=== PATIENT | male | born 1985 | race Caucasian/White ===

== ENCOUNTER 2017-11-18 09:00 | Emergency (ER) | payer MEDICAID ==
[~2017-11-18] VITALS: Ht 177.8 cm; Wt 97.0 kg
[2017-11-18] MEDS ORDERED: ondansetron/PF 4mg/2ml inj IV ONE (10:20)
[2017-11-18] MEDS ORDERED: normal saline 1000ml 1,000 ML IV ONE (10:20)
[2017-11-18] MEDS ORDERED: acetaminophen 325mg tablet PO ONE (10:30)
[2017-11-18 10:35] LABS: BASOPHILS % (AUTO) 0.3 % (0-1); EOSINOPHILS # (AUTO) 0.2 X10'3 (0-0.9); EOSINOPHILS % (AUTO) 1.4 % (0-6); HEMATOCRIT 45.9 % (42.0-52.0); HEMOGLOBIN 15.7 g/dl (14.0-17.9); LYMPHOCYTES # (AUTO) 2.3 X10'3 (1.1-4.8); LYMPHOCYTES % (AUTO) 19.1 % (21-51); MEAN CORPUSCULAR HEMOGLOBIN 31.2 PG (27.0-31.0); MEAN CORPUSCULAR HGB CONC 34.2 % (33.0-36.5); MEAN PLATELET VOLUME 7.9 FL (7.4-10.4); MONOCYTES # (AUTO) 0.8 X10'3 (0-0.9); MONOCYTES % (AUTO) 6.7 % (2-12); NEUTROPHILS # (AUTO) 8.5 X10'3 (1.8-7.7); NEUTROPHILS % (AUTO) 72.5 % (42-75); PLATELET COUNT 224 X10'3 (140-440); RED BLOOD COUNT 5.04 X10'6 (4.70-6.10); RED CELL DISTRIBUTION WIDTH 12.7 % (11.5-14.5); WHITE BLOOD COUNT 11.8 X10'3 (4.5-11.0)
[2017-11-18 10:54] LABS: ALANINE AMINOTRANSFERASE 36 U/L (12-78); ALBUMIN 4.1 G/DL (3.4-5.0); ALKALINE PHOSPHATASE 80 IU/L (46-116); ANION GAP 9 (8-16); ASPARTATE AMINO TRANSFERASE 23 U/L (10-37); BILIRUBIN,TOTAL 0.4 MG/DL (0.1-1.0); BLOOD UREA NITROGEN 9 MG/DL (7-18); BUN/CREATININE RATIO 10.1 (5.4-32.0); CALCIUM 9.4 MG/DL (8.5-10.1); CHLORIDE 103 MMOL/L (99-107); CREATININE 0.89 MG/DL (0.60-1.10); GLUCOSE 102 MG/DL (70-104); POTASSIUM 4.2 MMOL/L (3.5-5.1); SODIUM 140 MMOL/L (135-145); TOTAL CARBON DIOXIDE 27.8 MMOL/L (24-32); TOTAL PROTEIN 8.1 G/DL (6.4-8.2); eGFR > 90 ML/MIN
[2017-11-18 11:13] VITALS: BP 148/93
[2017-11-18] MEDS ORDERED: POLY119P2 PO (11:17)
[2017-11-18] MEDS ORDERED: BISA-155 PO (11:17)
== END 2017-11-18 11:38 | disposition home or self-care (01) ==
LOC: ER 09:00
DX: K64.9 Unspecified hemorrhoids (principal); R10.84 Generalized abdominal pain; Z79.899 Other long term (current) drug therapy
CPT/HCPCS: 36415; 80053; 85025; 93005; 96374; 99285; J2405; J7030

== ENCOUNTER 2018-03-08 07:35 | Emergency (ER) | payer BC, MEDICAID ==
[~2018-03-08] VITALS: Ht 177.8 cm; Wt 95.8 kg
[~2018-03-08 07:35] MED LIST: BISA-155 PO; POLY119P2 PO
[2018-03-08 07:40] VITALS: BP 187/104
[2018-03-08] MEDS ORDERED: triamcinolone acetonide 0.1% ointment 15gm TP STA (08:27)
== END 2018-03-08 08:56 | disposition home or self-care (01) ==
LOC: ER 07:36
DX: K13.0 Diseases of lips (principal); N48.89 Other specified disorders of penis; Z79.899 Other long term (current) drug therapy
CPT/HCPCS: 99282; 99283

== ENCOUNTER 2018-03-09 08:20 | Emergency (ER) | payer BC, MEDICAID ==
[~2018-03-09] VITALS: Ht 177.8 cm; Wt 102.3 kg
[2018-03-09 08:46] VITALS: BP 156/70
[2018-03-09 09:40] LABS: CLARITY,URINE CLEAR (Clear); COLOR,URINE YELLOW (Yellow); GLUCOSE, URINE NEGATIVE (Neg); KETONES,URINE NEGATIVE (Neg); LEUKOCYTE ESTERASE ,URINE NEGATIVE (Neg); NITRITES, URINE NEGATIVE (Neg); OCCULT BLOOD,URINE NEGATIVE (Neg); PROTEIN,URINE NEGATIVE (Neg); UROBILINOGEN,URINE 0.2 E.U/dL (0.2-1.0)
[2018-03-09 09:46] LABS: UA COLLECTION TYPE NON-SPECIFIED
== END 2018-03-09 10:02 | disposition home or self-care (01) ==
LOC: ER 08:20
DX: F41.9 Anxiety disorder, unspecified (principal); B00.1 Herpesviral vesicular dermatitis; Z79.899 Other long term (current) drug therapy
CPT/HCPCS: 81003; 99283

== ENCOUNTER 2019-09-30 07:57 | Emergency (ER) | payer BC, MEDICAID ==
[~2019-09-30] VITALS: Ht 177.8 cm; Wt 90.0 kg
--- NOTE | 2019-09-30 09:25 | NUR ---
ekg done as pt was c/o chest tightness ,nausea, lft sided neck pain .dr lincoln notified.
[2019-09-30] MEDS ORDERED: normal saline 1000ML IV soln IVB ONE (09:55)
[2019-09-30 10:35] LABS: BASOPHILS % (AUTO) 0.3 % (0-1); EOSINOPHILS % (AUTO) 0.4 % (0-6); HEMATOCRIT 51.1 % (42.0-52.0); HEMOGLOBIN 17.5 g/dl (14.0-17.9); LYMPHOCYTES # (AUTO) 1.4 X10'3 (1.1-4.8); LYMPHOCYTES % (AUTO) 20.5 % (21-51); MEAN CORPUSCULAR HEMOGLOBIN 32.1 PG (27.0-31.0); MEAN CORPUSCULAR HGB CONC 34.2 g/dL (33.0-36.5); MEAN CORPUSCULAR VOLUME 93.7 FL (78-98); MEAN PLATELET VOLUME 8.4 FL (7.4-10.4); MONOCYTES # (AUTO) 0.4 X10'3 (0-0.9); NEUTROPHILS # (AUTO) 5.1 X10'3 (1.8-7.7); NEUTROPHILS % (AUTO) 72.8 % (42-75); PLATELET COUNT 198 X10'3 (140-440); RED BLOOD COUNT 5.46 X10'6 (4.70-6.10); RED CELL DISTRIBUTION WIDTH 12.8 % (11.5-14.5)
[2019-09-30 10:44] LABS: ALANINE AMINOTRANSFERASE 23 U/L (12-78); ALBUMIN 4.6 G/DL (3.4-5.0); ALBUMIN/GLOBULIN RATIO 1.2 (1.1-1.5); ALKALINE PHOSPHATASE 60 IU/L (46-116); ANION GAP 11 (8-16); ASPARTATE AMINO TRANSFERASE 26 U/L (10-37); BILIRUBIN,TOTAL 0.7 MG/DL (0.1-1.0); BLOOD UREA NITROGEN 12 MG/DL (7-18); BUN/CREATININE RATIO 13.6 (5.4-32.0); CALCIUM 9.4 MG/DL (8.5-10.1); CHLORIDE 104 MMOL/L (99-107); CREATININE 0.88 MG/DL (0.60-1.10); GLUCOSE 99 MG/DL (70-104); POTASSIUM 4.3 MMOL/L (3.5-5.1); SODIUM 141 MMOL/L (135-145); TOTAL CARBON DIOXIDE 25.9 MMOL/L (24-32); TOTAL PROTEIN 8.6 G/DL (6.4-8.2); eGFR > 90 ML/MIN
[2019-09-30 11:17] VITALS: BP 149/71
== END 2019-09-30 11:40 | disposition home or self-care (01) ==
LOC: ER 07:57
DX: R07.89 Other chest pain (principal); R42 Dizziness and giddiness; M54.2 Cervicalgia; F12.10 Cannabis abuse, uncomplicated; Z79.899 Other long term (current) drug therapy
CPT/HCPCS: 36415; 71045; 80053; 84484; 85025; 93005; 96360; 99285; J7030

== ENCOUNTER 2020-06-15 13:58 | Emergency (ER) | payer MEDICAID ==
[~2020-06-15] VITALS: Ht 180.3 cm; Wt 90.9 kg
[2020-06-15 14:23] VITALS: BP 157/81
[2020-06-15] MEDS ORDERED: ketorolac tromethamine 15mg/ml inj. IM ONE (15:00)
[2020-06-15] MEDS ORDERED: IBUP-1984 PO (15:02)
== END 2020-06-15 15:26 | disposition home or self-care (01) ==
LOC: ER 13:59
DX: S83.91XA Sprain of unspecified site of right knee, initial encounter (principal); M25.561 Pain in right knee; F12.90 Cannabis use, unspecified, uncomplicated; Z79.899 Other long term (current) drug therapy; X58.XXXA Exposure to other specified factors, initial encounter; Y93.89 Activity, other specified; Y92.89 Other specified places as the place of occurrence of the external cause; Y99.8 Other external cause status
CPT/HCPCS: 29505; 73564; 96372; 99283; J1885; 12002

== ENCOUNTER 2024-09-23 12:56 | Emergency (ER) | payer MEDICAID ==
[~2024-09-23] VITALS: Ht 177.8 cm; Wt 80.9 kg
[2024-09-23 12:59] VITALS: BP 148/92; PULSE 55; RESP 16; TEMP 97.6; O2SAT 99
--- NOTE | 2024-09-23 13:29 | RADIOLOGY REPORT ---
CLINICAL INDICATION: WRIST PAIN TECHNIQUE: 4 radiographic views of the left wrist were obtained. Comparison: None FINDINGS/IMPRESSION: There is no evidence of acute fracture or dislocation. The visualized joint space is well maintained. The alignment is anatomical. There is no radiopaque foreign body.
--- NOTE | 2024-09-23 13:39 | Physician Documentation ---
History of Present Illness ~ Chief Complaint: Wrist pain Stated Complaint: L WRIST PAIN Time Seen by MD: 13:29 OK to notify your PCP?: Yes Primary Medical Doctor: [facility] Source: patient Mode of Arrival: POV Exam Limitations: no limitations HPI This is a 38-year-old male who comes in complaining of left wrist pain. The patient states that is he slipped and fell [place] river yesterday injuring his left wrist. He states he is able to move the wrist but he has some pain over the dorsal distal aspect of the ulna and the volar aspect of the radius. He denies distal numbness tingling or weakness. Tetanus within 5 years: Yes Medication Reconciliation Allergies: Coded Allergies: No Known Allergies (Unverified , 09/30/19) Scheduled Bisacodyl (Dulcolax), 4 TAB PO ONCE Polyethylene Glycol 3350 (Miralax), 1 SCOOP PO DAILY Past Medical History Past Medical History: Hemorrhoids Past Surgical History: no surgical history Alcohol Use: None Drug Use: marijuana Lives In: Home Occupation: employed Physical Exam Vital Signs: Temperature: 97.6, Source: Temporal, Heart Rate: 55, Respiratory Rate: 16, BP: 148/92, Pulse Oximetry: 99, Weight: 80.900 Pulse Oximetry Reflects: adequate oxygenation General Appearance: alert, WD/WN, no apparent distress Wrist To inspection of the left wrist no obvious trauma or deformity. There is tenderness to palpation of the distal radius and ulna both from the volar and dorsal aspect of the wrist however there was no obvious step-off deformity or crepitus. No anatomical snuffbox tenderness. The patient has a hold of flex and extend with the wrist however he has decreased range of motion you complains of pain. He has decreased range of motion also has a ulnar radial deviation. No tenderness or crepitus to palpation of the distal metacarpals or phalanges. No tenderness to palpation of the proximal forearm elbow. Left radial pulses 2+ and cap refill less than 2 seconds and brisk in the digits of the left hand Progress Results/Orders Results/Orders Orders - NATALIE SUE Ortho Orders (09/23/24 13:32) Vital Signs 09/23/24 12:59 Temp 97.6 Pulse 55 Resp 16 B/P (MAP) 148/92 Pulse Ox 99 EKG/XRAY/CT/US/VASC/MRI Bone/Soft Tissue X-Ray (Ext.) : Interpreted By: self Additional Comment X-ray left wrist three-view interpreted by me: No obvious fracture or malalignment. Soft tissues are unremarkable. Medical Decision Making Findings X-rays of the left wrist did not show evidence of fracture. I had the patient placed in a Velcro volar wrist splint with the instructions to wear it as needed for discomfort, ice and elevate the wrist frequently and take ibuprofen for pain. Follow up with the primary care physician for recheck in the next one or two days and return to the ER for any worsening or concerning symptoms for Additional Comment Left wrist sprain strain. Left distal radius fracture. Left ulnar styloid fracture. Departure Disposition: 01 HOME / SELF CARE / HOMELESS Impression: Primary Impression: Sprain and strain of left wrist Condition: Stable Discharge Instructions: Wrist Sprain, Adult Additional Instructions: The x-rays of the left wrist were negative for fracture. Were you can so I have soft tissue injury of the wrist which to be treated with the wrist splint, ice elevation and time. You can take ibuprofen or Tylenol for pain. Follow up with your primary care physician for recheck in the next one or two days and return to the ER for any worsening or concerning symptoms Referrals: NO PRIMARY CARE PROVIDER (PCP) Signature Scribe Signature: No scribe Attestation: The note accurately reflects work and decisions made by me.Natalie PERKINS 09/23/24 13:38 NATALIE SUE Sep 23, 2024 13:39
== END 2024-09-23 13:50 | disposition home or self-care (01) ==
LOC: ER 12:57
DX: S63.592A Other specified sprain of left wrist, initial encounter (principal); S66.812A Strain of other specified muscles, fascia and tendons at wrist and hand level, left hand, initial encounter; F12.90 Cannabis use, unspecified, uncomplicated; Z79.899 Other long term (current) drug therapy; W01.0XXA Fall on same level from slipping, tripping and stumbling without subsequent striking against object, initial encounter; Y93.89 Activity, other specified; Y92.89 Other specified places as the place of occurrence of the external cause; Y99.8 Other external cause status
CPT/HCPCS: 29125; 73110; 99283

== ENCOUNTER 2024-11-04 18:33 | Emergency (ER) | payer MEDICAID ==
[~2024-11-04] VITALS: Ht 177.8 cm; Wt 83.8 kg
[2024-11-04 19:02] VITALS: BP 157/91; PULSE 69; RESP 15; TEMP 96.3; O2SAT 99
--- NOTE | 2024-11-04 19:42 | RADIOLOGY REPORT ---
CLINICAL INDICATION: FOOT PAIN LEFT TECHNIQUE: 3 radiographic views of the left foot were obtained. Comparison: DI WRIST, COMPLETE (3VW MIN) on DOS: 09/23/24 FINDINGS/IMPRESSION: There is no evidence of acute fracture or dislocation. Bony spur from the dorsal 1st metatarsal head. The visualized joint space is well maintained. The alignment is anatomical.
--- NOTE | 2024-11-04 21:30 | Physician Documentation ---
History of Present Illness ~ Chief Complaint: Foot pain Stated Complaint: LT FOOT INJURY Time Seen by MD: 20:34 Primary Medical Doctor: [facility] This is a 38-year-old male who presents after dropping a heavy object on his l eft foot, patient reports pain when walking or bearing weight on the foot. Patient reports no loss of sensation to Tetanus witin 5 years: Yes Medication Reconciliation Allergies: Coded Allergies: No Known Allergies (Unverified , 11/04/24) Scheduled Bisacodyl (Dulcolax), 4 TAB PO ONCE Polyethylene Glycol 3350 (Miralax), 1 SCOOP PO DAILY Past Medical History Past Medical History: Hemorrhoids Past Surgical History: no surgical history Alcohol Use: None Drug Use: marijuana Lives In: Home Occupation: employed Review of Systems ROS As stated above in the HPI, otherwise all systems are reviewed and negative. Physical Exam Vital Signs: Temperature: 96.3, Source: Temporal, Heart Rate: 69, Respiratory Rate: 15, BP: 157/91, Pulse Oximetry: 99, Weight: 83.750 Physical Exam VITALS: Reviewed and as above. GENERAL: Alert, nontoxic appearing, no apparent distress. RESPIRATORY: No increased work of breathing, no respiratory distress, speaking in full clear sentences MUSCULOSKELETAL: Left foot no obvious deformity, mild swelling, tenderness to palpation to the medial dorsal aspect of foot, foot neurovascularly intact with brisk capillary refill and intact pedal pulse SKIN: No ecchymosis Progress Results/Orders Results/Orders Orders - MICHAEL PARRISH [employer] Ortho Orders (11/04/24 ) Vital Signs 11/04/24 19:02 Temp 96.3 Pulse 69 Resp 15 B/P (MAP) 157/91 Pulse Ox 99 EKG/XRAY/CT/US/VASC/MRI Bone/Soft Tissue X-Ray (Ext.) : Additional Comment Exam: FOOT, COMPLETE (3VW MIN) CLINICAL INDICATION: FOOT PAIN LEFT TECHNIQUE: 3 radiographic views of the left foot were obtained. Comparison: DI WRIST, COMPLETE (3VW MIN) on DOS: 09/23/24 FINDINGS/IMPRESSION: There is no evidence of acute fracture or dislocation. Bony spur from the dorsal 1st metatarsal head. The visualized joint space is well maintained. The alignment is anatomical. Electronically Signed by:DEVENDRA MODI DO Date & Time: 11/04/241938 Dictated by: DEVENDRA MODI DO Dictation date and time: 11/04/241938 I have reviewed and agree with the radiology report. I have reviewed and interpreted the imaging as: No fracture or dislocation Medical Decision Making Findings This 38-year-old male presented with pain to his left foot worse on the medial aspect falling dropping a heavy object onto his foot, x-ray did not demonstrate evidence of fracture or dislocation, physical exam demonstrated mild swelling without ecchymosis, laceration, or deformity to the left foot. It was reassuring the foot was neurovascularly intact. Treatment plan with rest, compression, ice, and elevation along with placing patient on crutches for comfort. Patient reported pain controlled with ibuprofen taken prior to arrival. Patient provided home care instructions, return to care precautions, and follow up instructions which he verbalized understanding of. General Diff Dx:Considerations: Include: Fracture Foot Diff Dx:Considerations: Include: Abrasion, Arthritis, Cellulitis, Contusion, Dislocation, Gout, Hematoma, Laceration, Neurovascular injury Departure Time of Disposition: 21:30 Disposition: 01 HOME / SELF CARE / HOMELESS Impression: Primary Impression: Foot pain Qualified Codes: M79.672 - Pain in left foot Condition: Improved Discharge Instructions: RICE Therapy for Routine Care of Injuries Additional Instructions: Please see the attached home care instructions for rest, ice, compression, and elevation to treat your injury, stay on the crutches to rest your foot until pain begins to improve. Elevate your foot when possible. You may use ibuprofen and or Tylenol as directed by [id number] packaging as needed for pain. Please follow up with your primary care provider in the next few days. Please return to the emergency department for any new or worsening concerning symptoms. Referrals: NO PRIMARY CARE PROVIDER (PCP) Education Educated: Patient Educated regarding: diagnosis, treatment, prognosis, need for follow up Signature Scribe Signature: No scribe Attestation: The note accurately reflects work and decisions made by me.NASIMA Joy 11/05/24 01:15 MICHAEL PARRISH Nov 04, 2024 21:30
== END 2024-11-04 21:34 | disposition home or self-care (01) ==
LOC: ER 18:33
DX: M79.672 Pain in left foot (principal); F12.90 Cannabis use, unspecified, uncomplicated; Z79.899 Other long term (current) drug therapy; W20.8XXA Other cause of strike by thrown, projected or falling object, initial encounter; Y93.89 Activity, other specified; Y92.89 Other specified places as the place of occurrence of the external cause; Y99.8 Other external cause status
CPT/HCPCS: 73630; 99283; A6449